=== PATIENT | male | born 1975 | race Caucasian/White ===

== ENCOUNTER 2016-09-04 20:24 | Emergency (ER) | payer OTHER ==
--- NOTE | 2016-09-04 21:37 | ED ORDER SUMMARY ---
..... Patient: MUKUL PAINTER OrderSheet [facility] VisitID: [id number] [place] [address] 41y, M Registration Date/Time: 09/04/2016 ORDER SHEET Weight: 90.7 kg (stated) Allergies: Aspirin GENERAL ORDERS: MEDICATION ORDERS: Bupivacaine-Epinephrine Injection 0.5 % (soln) (NOW) (:09/04/2016 Christian Montenegro) (Ack 21:20 HSoule) (21:24 HSoule) Lidocaine-Epinephrine Injection 1% (place at bedside, with syringes & needles) (:09/04/2016 Christian Montenegro) (Ack 21:20 HSoule) (21:24 HSoule) Penicillin V Potassium PO 500 mg (NOW) (:09/04/2016 Christian Montenegro) (Ack 21:20 HSoule) (21:24 HSoule) IV FLUIDS: ORDER SHEET NOTES: [Electronically signed by Valeria Vang R.N. (21:44 09/04/2016)] [Electronically signed by Alessio Guerra Dr. (07:48 09/05/2016)] [Electronically locked/signed by Valeria Vang R.N. (:44 09/04/2016)]
--- NOTE | 2016-09-04 21:37 | ED NURSING NOTES ---
Clinical Report - Nurses [facility] [address] [place] [address] 09/04/2016 20:26 Patient: MUKUL PAINTER TRIAGE Triage time 20:32. Chief Complaint: LEFT LOWER TOOTHACHE and JAW PAIN. --20:38 Sharri Cazares R.N. 20:32 09/04/16. BP: 133/95. HR: 67. RR: 18. O2 saturation: 96% on room air. Temp: 98.2 F (oral). Pain level now: 11/22. --20:38 Sharri Cazares R.N. Weight: 90.7 kg stated. Height/Length: 68 inches Per Patient. BMI: 30.4. --20:39 Sharri Cazares R.N. Medications Naproxen Oral. --20:36 Sharri Cazares R.N. Allergies Aspirin. --20:36 Sharri Cazares R.N. History Arrived by private vehicle. Primary physician (none). This started yesterday. Onset was gradual. Started while eating and worsened while eating. Symptoms still present (pain started 2 days ago). He has no dental appointment scheduled. ( left lower molar teeth broken at the gum). He has had a toothache (left lower molar). PAST MEDICAL HX: Immunizations: up-to-date. SOCIAL HX: Never smoker. Occasional alcohol use; consumes beer occasionally. History of drug use: marijuana. Recently used drugs just prior to arrival. (daily). --20:38 Sharri Cazares R.N. FALL RISK ASSESSMENT: Fall risk assessment completed. No fall risk identified. --20:38 Sharri Cazares R.N. PROBLEMS: no known problems. ADDITIONAL SURGERIES: no known surgeries. Interventions ID band on patient. --20:38 Sharri Cazares R.N. PHYSICAL ASSESSMENT Ambulatory to room. GENERAL / NEURO / PSYCH: Alert. Oriented X 4. Appears in no acute distress. HEENT: Extensive dental decay (right lower molar area, right lower canine area, left lower molar area). RESPIRATORY: Respirations not labored. SKIN: Skin is warm and dry. --20:39 Sharri Cazares R.N. NURSING PROGRESS NOTES Two patient identifiers checked. Call light placed in reach. Side rails up x 1. Bed placed in lowest position. Brakes of bed on. Patient ready for evaluation- chart flagged. --20:40 Sharri Cazares R.N. 21:24 09/04/2016 Bupivacaine-Epinephrine (Bupivacaine-Epinephrine) Injection Injectable 0.5 % given. Allergies verified and confirmed 5 rights. (Administered by provider as dental block). --21:24 Larisa Torres 21:09/04/2016 Lidocaine-Epinephrine (Lidocaine-Epinephrine) Injection Injectable 2 % given. Allergies verified and confirmed 5 rights. (Administered by provider as dental block). --21:24 Larisa Torres 21:09/04/2016 Penicillin V Potassium PO Tablets 500 mg given. Allergies verified and confirmed 5 rights. --:24 Larisa Torres. DISPOSITION / DISCHARGE Departure time: 21:44. Condition at departure: improved. No learning barriers present. Discharge instructions provided and reviewed with the patient. Reviewed medication(s) side effects, precautions, dosing and course information. Prescription(s) given to the patient. Reviewed referral to a dentist. Patient verbalized understanding. Written instructions provided in East Timorese. No warning instructions, treatment instructions, diet instructions, activity restrictions or note given. No follow up contact number given or stop smoking instructions. The patient was discharged by the physician. He was discharged home. He left the Emergency Department ambulatory and via private vehicle. Police Surgeon driving. FALL RISK ASSESSMENT: Fall risk assessment completed. No fall risk identified. --21:44 Sahra Plata 21:43 09/04/16. BP: 125/66. HR: 72. RR: 18. O2 saturation: 99%. Temp: deferred. Pain level now: 0/10. --21:44 Sahra Plata Locked/Released at 09/04/2016 21:44 by Sahra Plata
--- NOTE | 2016-09-04 21:37 | ED NURSING NOTES ---
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 Chief Complaint: LEFT LOWER TOOTHACHE and JAW PAIN. --20:38 Sharri Cazares R.N. 20:32 09/04/16. BP: 133/95. HR: 67. RR: 18. O2 saturation: 96% on room air. Temp: 98.2 F (oral). Pain level now: 11/22. --20:38 Sharri Cazares R.N. Weight: 90.7 kg stated. Height/Length: 68 inches Per Patient. BMI: 30.4. --20:39 Sharri Cazares R.N. Medications Naproxen Oral. --20:36 Sharri Cazares R.N. Allergies Aspirin. --20:36 Sharri Cazares R.N. History Arrived by private vehicle. Primary physician (none). This started yesterday. Onset was gradual. Started while eating and worsened while eating. Symptoms still present (pain started 2 days ago). He has no dental appointment scheduled. ( left lower molar teeth broken at the gum). He has had a toothache (left lower molar). PAST MEDICAL HX: Immunizations: up-to-date. SOCIAL HX: Never smoker. Occasional alcohol use; consumes beer occasionally. History of drug use: marijuana. Recently used drugs just prior to arrival. (daily). --20:38 Sharri Cazares R.N. FALL RISK ASSESSMENT: Fall risk assessment completed. No fall risk identified. --20:38 Sharri Cazares R.N. PROBLEMS: no known problems. ADDITIONAL SURGERIES: no known surgeries. Interventions ID band on patient. --20:38 Sharri Cazares R.N. PHYSICAL ASSESSMENT Ambulatory to room. GENERAL / NEURO / PSYCH: Alert. Oriented X 4. Appears in no acute distress. HEENT: Extensive dental decay (right lower molar area, right lower canine area, left lower molar area). RESPIRATORY: Respirations not labored. SKIN: Skin is warm and dry. --20:39 Sharri Cazares R.N. NURSING PROGRESS NOTES Two patient identifiers checked. Call light placed in reach. Side rails up x 1. Bed placed in lowest position. Brakes of bed on. Patient ready for evaluation- chart flagged. --20:40 Sharri Cazares R.N. 21:24 09/04/2016 Bupivacaine-Epinephrine (Bupivacaine-Epinephrine) Injection Injectable 0.5 % given. Allergies verified and confirmed 5 rights. (Administered by provider as dental block). --21:24 Larisa Torres 21:09/04/2016 Lidocaine-Epinephrine (Lidocaine-Epinephrine) Injection Injectable 2 % given. Allergies verified and confirmed 5 rights. (Administered by provider as dental block). --21:24 Larisa Torres 21:09/04/2016 Penicillin V Potassium PO Tablets 500 mg given. Allergies verified and confirmed 5 rights. --:24 Larisa Torres. DISPOSITION / DISCHARGE Departure time: 21:44. Condition at departure: improved. No learning barriers present. Discharge instructions provided and reviewed with the patient. Reviewed medication(s) side effects, precautions, dosing and course information. Prescription(s) given to the patient. Reviewed referral to a dentist. Patient verbalized understanding. Written instructions provided in Lebanese. No warning instructions, treatment instructions, diet instructions, activity restrictions or note given. No follow up contact number given or stop smoking instructions. The patient was discharged by the physician. He was discharged home. He left the Emergency Department ambulatory and via private vehicle. Investment Sales Assistant driving. FALL RISK ASSESSMENT: Fall risk assessment completed. No fall risk identified. --21:44 Sahra Plata 21:43 09/04/16. BP: 125/66. HR: 72. RR: 18. O2 saturation: 99%. Temp: deferred. Pain level now: 0/10. --21:44 Sahra Plata Locked/Released at 09/04/2016 21:44 by Sahra Plata
--- NOTE | 2016-09-04 21:37 | ED CLINICAL REPORT ---
Clinical Report - Physicians/Mid Levels [facility] [address] [place] [place] [address] 09/04/2016 20:26 Patient: MUKUL PAINTER Time Seen: 2109; initial patient contact. Arrived- By private vehicle. Historian- patient. HISTORY OF PRESENT ILLNESS Chief Complaint: DENTAL PAIN. This started today But off-and-on for the past several months and is still present and worsening. It was abrupt in onset and has been constant but is not gone now. Pain described as severe. No toothache. (left lower teeth. No recent dental procedures. Reports his tetanus is up-to-date.). Similar symptoms previously: Recent medical care: Not recently seen/assessed. REVIEW OF SYSTEMS No fever, nausea, skin rash or vomiting. All systems otherwise negative, except as recorded above. PAST HISTORY See nurses notes. Problems: no known problems. Additional Surgeries: no known surgeries. Medications: Naproxen Oral. Allergies: Aspirin. SOCIAL HISTORY Never smoker. Alcohol use. History of occasional drug use: marijuana. No recent travel. Is a local resident. ADDITIONAL NOTES The nursing notes have been reviewed. PHYSICAL EXAM Vital Signs: 09/04/2016 20:32 BP: 133/95. HR: 67. RR: 18. O2 saturation: 96%. Temp: 98.2 F. Pain level now: 7/10. Oxygen saturation normal. Appearance: Alert. No acute distress. (ontoxic). Head: Normal external inspection. Eyes: Pupils equal, round and reactive to light. Conjunctivae and eyelids normal. ENT: Dental decay. Ears normal. Nose normal. Pharynx normal. Lips normal. Gums normal. No trismus present. Uvula midline. (no brawny edema). (diffuse dental caries. No abscess. No active drainage.). Neck: Trachea midline. No adenopathy. CVS: Normal heart rate and rhythm. Heart sounds normal. Pulses normal. Respiratory: No respiratory distress. Breath sounds normal. Chest nontender. Abdomen: Soft and nontender. No organomegaly. Skin: Normal skin color. No rash. Normal skin turgor. Extremities: Extremities exhibit normal ROM. Extremities nontender. PROGRESS AND PROCEDURES Dental Nerve Block: Inferior Alveolar Block. Procedure performed on the left side. Landmarks were identified. Topical anesthetic applied. Total volume of 5 mL 1% Lidocaine and 0.25% Marcaine infiltrated using a 27-gauge needle. Patient cooperative during procedure. No complications encountered. Excellent anesthesia achieved. ( Pain resolved). Course of Care: the patient is a pleasant 41-year-old male with no pertinent past medical history presenting for evaluation of toothache. No evidence of airway compromise at this time. Offered patient dental block while here in the emergency department. After discussion of the risk and benefits of the procedure, patient was agreeable to the dental block. A 11 solution oflidocaine with bupivacaine as been injected into the inferior alveolar nerve space. Please see procedure note for further details. Patient tolerated procedure well. Paincame from a 7 out of 10 in severity down to a 0 out of 10 in severity. No signs of more serious infection at this time. Patient be treated conservatively with antibiotics and follow up with dental specialist. Resources provided here in the emergency department. Had a discussion with the patient in regards his workup here in the emergency department In addition to diagnosis, home care, follow-up, and return precautions. All questions have been answered. The patient expressed understanding of these instructions and was agreeable to them. Disposition: Discharged. Condition: good. CLINICAL IMPRESSION 09/04/2016 20:32 BP: 133/95. HR: 67. RR: 18. O2 saturation: 96%. Temp: 98.2 F. Pain level now: 7/10. Blood pressure normal. Oxygen saturation normal. Dental caries (extensive decay) Essential hypertension. acute left sided facial pain. INSTRUCTIONS Warnings: GENERAL WARNINGS: Return or contact your physician immediately if your condition worsens or changes unexpectedly, if not improving as expected, or if other problems arise. Specifically return if pain, vomiting, bleeding, breathing difficulty or fever. Your Current Medications: STOP TAKING THE FOLLOWING MEDICATIONS: Naproxen Oral. Prescription Medications: Penicillin V 500 mg: take 1 tab orally every 12 hours for 10 days. Dispense twenty (20). No refills. Motrin 600 mg tablets: take 1 tablet orally every 6 hours as needed for pain, stiffness or swelling. Dispense thirty (30). No refill. Substitution is permissible. Follow-up: Return to the emergency department as needed. Follow up with your doctor. Reason for referral: recheck today's concerns. Summary of care provided to patient via paper. Screening today revealed the patient's blood pressure to be in the normal range. The patient should follow up with a primary care provider for blood pressure management. Understanding of the discharge instructions verbalized by patient. (Electronically signed by Alessio Guerra Dr. 09/05/2016 7:48)
--- NOTE | 2016-09-04 21:37 | ED ORDER SUMMARY ---
..... Patient: MUKUL PAINTER OrderSheet [facility] VisitID: [id number] [place] [address] 41y, M Registration Date/Time: 09/04/2016 ORDER SHEET Weight: 90.7 kg (stated) Allergies: Aspirin GENERAL ORDERS: MEDICATION ORDERS: Bupivacaine-Epinephrine Injection 0.5 % (soln) (NOW) (:09/04/2016 Christian Montenegro) (Ack 21:20 HSoule) (21:24 HSoule) Lidocaine-Epinephrine Injection 1% (place at bedside, with syringes & needles) (:09/04/2016 Christian Montenegro) (Ack 21:20 HSoule) (21:24 HSoule) Penicillin V Potassium PO 500 mg (NOW) (:09/04/2016 Christian Montenegro) (Ack 21:20 HSoule) (21:24 HSoule) IV FLUIDS: ORDER SHEET NOTES: [Electronically signed by Valeria Vang R.N. (21:44 09/04/2016)] [Electronically signed by Alessio Guerra Dr. (07:48 09/05/2016)] [Electronically locked/signed by Valeria Vang R.N. (:44 09/04/2016)]
--- NOTE | 2016-09-05 07:48 | ED DISCHARGE INSTRUCTIONS ---
Patient: MUKUL PAINTER General Instructions [facility] VisitID: [id number] [place] [address] 41y, M Registration Date/Time: 09/04/2016 09/04/2016 20:32 BP: 133/95. HR: 67. RR: 18. O2 saturation: 96%. Temp: 98.2 F. Pain level now: 11/22. Blood pressure normal. Oxygen saturation normal. Dental caries (extensive decay) Essential hypertension. acute left sided facial pain. INSTRUCTIONS Warnings: GENERAL WARNINGS: Return or contact your physician immediately if your condition worsens or changes unexpectedly, if not improving as expected, or if other problems arise. Specifically return if pain, vomiting, bleeding, breathing difficulty or fever. Your Current Medications: STOP TAKING THE FOLLOWING MEDICATIONS: Naproxen Oral. Prescription Medications: Penicillin V 500 mg: take 1 tab orally every 12 hours for 10 days. Dispense twenty (20). No refills. Motrin 600 mg tablets: take 1 tablet orally every 6 hours as needed for pain, stiffness or swelling. Dispense thirty (30). No refill. Substitution is permissible. Follow-up: Return to the emergency department as needed. Follow up with your doctor. Reason for referral: recheck today's concerns. Summary of care provided to patient via paper. Screening today revealed the patient's blood pressure to be in the normal range. The patient should follow up with a primary care provider for blood pressure management. Understanding of the discharge instructions verbalized by patient. ADDITIONAL INFORMATION Dental Cavity A dental cavity is a pit or crater in the enamel surface of the tooth. This exposes the sensitive inner layer of the tooth and causes pain. If untreated, the cavity will get bigger and may cause an infection or abscess in the root of the tooth. An infection in the tooth is a much more serious problem and may require a root canal or removal of the entire tooth. The tooth pain may be made worse by drinking hot or cold fluids. It may spread from the tooth to the ear or jaw on the same side. Home Care: Avoid hot and cold foods, and liquids since your tooth may be sensitive to temperature changes. If your tooth is chipped or cracked, or if there is a large open cavity, apply OIL OF CLOVES (available [id number] in drug stores) directly to the tooth to reduce pain. Some pharmacies carry an [id number] "toothache kit." This contains oil of cloves and a paste, which can be applied over the exposed tooth to decrease sensitivity. An ice pack on your jaw over the sore area may help to reduce pain. You may use acetaminophen (Tylenol) or ibuprofen (Motrin, Advil) to control pain, unless another pain medicine was prescribed. [ NOTE: If you have liver disease or ever had a stomach ulcer, talk with your doctor before using these medicines.] If you have signs of an infection, an antibiotic will be given. Take it as directed. Follow-Up with your dentist as directed. Although your pain may go away with the treatment given, only a dentist can fully evaluate and treat this problem to prevent further tooth damage. Get Prompt Medical Attention if any of the following occur: Redness or swelling of the face Pain worsens or spreads to the neck Fever over 100.5 F (38C) Unusual drowsiness; headache or stiff neck; weakness or fainting Pus drains from the tooth or gum Difficulty swallowing or breathing High Blood Pressure -- To Be Confirmed [No Tx] Your blood pressure was higher today than normal. Sometimes anxiety or pain can cause a temporary rise in blood pressure that later returns to normal. If your blood pressure is high on one measurement, this does not mean that you have hypertension (a chronic illness). However, you must have your blood pressure measured again within the next few days to find out if its still high. A normal blood pressure is 120/80 or less. The first (top) number is the "systolic" pressure. The second (bottom) number is the "diastolic" pressure. Hypertension exists when either the top number is 140 or higher, OR the bottom number is 90 or higher on repeated measurements. Blood pressure in the range of 120-140 (systolic) or 80-89 (diastolic) is considered "pre-hypertension". This means your are at risk for getting hypertension. You should have regular blood pressure checks to be sure your blood pressure is not rising. Home Care: Measure your blood pressure on 3 different days and write down the results. This can be done at your doctor's office or this facility. Some pharmacies and grocery stores offer automated blood pressure machines for your use. Follow Up: If your blood pressure is "high" (over 120/80) on 2 out of 3 days, you will need to follow up with your doctor for further evaluation and treatment. DO NOT PUT THIS OFF! Untreated high blood pressure increases the risk for heart attack, also known as acute myocardial infarction, or AMI, and stroke. It is a treatable condition. Get Prompt Medical Attention if any of the following occur: Chest pain or shortness of breath Severe headache Throbbing or rushing sound in the ears Nosebleed Sudden severe abdominal pain Extreme drowsiness, confusion or fainting Dizziness or vertigo (dizziness with spinning sensation) Weakness of an arm or leg or one side of the face Difficulty with speech or vision Penicillin V Potassium Oral tablet What is this medicine? PENICILLIN V (pen i SILL in V) is a penicillin antibiotic. It is used to treat certain kinds of bacterial infections. It will not work for colds, flu, or other viral infections. How should I use this medicine? Take this medicine by mouth with a full glass of water. Follow the directions on the prescription label. Take your medicine at regular intervals. Do not take your medicine more often than directed. Take all of your medicine as directed even if you think your are better. Do not skip doses or stop your medicine early. Talk to your plasma processing centrifuge operator regarding the use of this medicine in children. While this drug may be prescribed for selected conditions, precautions do apply. What side effects may I notice from receiving this medicine? Side effects that you should report to your doctor or health complex care nurse practitioner as soon as possible: allergic reactions like skin rash or hives, swelling of the face, lips, or tongue breathing problems fever new symptoms of infection redness, blistering, peeling or loosening of the skin, including inside the mouth unusually weak or tired Side effects that usually do not require medical attention (report to your doctor or health complex care nurse practitioner if they continue or are bothersome): diarrhea headache nausea, vomiting sore mouth or tongue stomach upset What may interact with this medicine? control pills methotrexate other antibiotics probenecid some vaccines What if I miss a dose? If you miss a dose, take it as soon as you can. If it is almost time for your next dose, take only that dose. Do not take double or extra doses. Where should I keep my medicine? Keep out of the reach of children. Store at room temperature between 15 and 30 degrees C (59 and 86 degrees F). Keep container tightly closed. Throw away any unused medicine after the expiration date. What should I tell my health care provider before I take this medicine? They need to know if you have any of these conditions: asthma bowel disease, like colitis eczema kidney disease an unusual or allergic reaction to penicillin, cephalosporins, other antibiotics or medicines, foods, tartrazine or other dyes, or preservatives or trying to get breast-feeding What should I watch for while using this medicine? Tell your doctor or health complex care nurse practitioner if your symptoms do not improve. Do not treat diarrhea with over the counter products. Contact your doctor if you have diarrhea that lasts more than 2 days or if it is severe and watery. If you have diabetes, you may get a false-positive result for sugar in your urine. Check with your doctor or health complex care nurse practitioner. control pills may not work properly while you are taking this medicine. Talk to your doctor about using an extra method of control. Ibuprofen Oral tablet What is this medicine? IBUPROFEN (eye BYOO proe fen) is a non-steroidal anti-inflammatory drug (NSAID). It is used for dental pain, fever, headaches or migraines, osteoarthritis, rheumatoid arthritis, or painful monthly periods. It can also relieve minor aches and pains caused by a cold, flu, or sore throat. How should I use this medicine? Take this medicine by mouth with a glass of water. Follow the directions on the prescription label. Take this medicine with food if your stomach gets upset. Try to not lie down for at least 10 minutes after you take the medicine. Take your medicine at regular intervals. Do not take your medicine more often than directed. A special MedGuide will be given to you by the pharmacist with each prescription and refill. Be sure to read this information carefully each time. Talk to your plasma processing centrifuge operator regarding the use of this medicine in children. Special care may be needed. What side effects may I notice from receiving this medicine? Side effects that you should report to your doctor or health complex care nurse practitioner as soon as possible: allergic reactions like skin rash, itching or hives, swelling of the face, lips, or tongue black or bloody stools, blood in the urine or in vomit breathing problems changes in vision chest pain general ill feeling or flu-like symptoms nausea or vomiting redness, blistering, peeling or loosening of the skin, including inside the mouth slurred speech or weakness on one side of the body stomach pain unexplained weight gain or swelling unusually weak or tired yellowing of eyes or skin Side effects that usually do not require medical attention (report to your doctor or health complex care nurse practitioner if they continue or are bothersome): constipation or diarrhea dizziness gas or heartburn stomach upset What may interact with this medicine? Do not take this medicine with any of the following medications: cidofovir ketorolac methotrexate pemetrexed This medicine may also interact with the following medications: alcohol aspirin diuretics lithium other drugs for inflammation like prednisone warfarin What if I miss a dose? If you miss a dose, take it as soon as you can. If it is almost time for your next dose, take only that dose. Do not take double or extra doses. Where should I keep my medicine? Keep out of the reach of children. Store at room temperature between 15 and 30 degrees C (59 and 86 degrees F). Keep container tightly closed. Throw away any unused medicine after the expiration date. What should I tell my health care provider before I take this medicine? They need to know if you have any of these conditions: asthma cigarette smoker drink more than 3 alcohol containing drinks a day heart disease or circulation problems such as heart failure or leg edema (fluid retention) high blood pressure kidney disease liver disease stomach bleeding or ulcers an unusual or allergic reaction to ibuprofen, aspirin, other NSAIDS, other medicines, foods, dyes, or preservatives or trying to get breast-feeding What should I watch for while using this medicine? Tell your doctor or healthcare professional if your symptoms do not start to get better or if they get worse. This medicine does not prevent heart attack or stroke. In fact, this medicine may increase the chance of a heart attack or stroke. The chance may increase with longer use of this medicine and in people who have heart disease. If you take aspirin to prevent heart attack or stroke, talk with your doctor or health complex care nurse practitioner. Do not take other medicines that contain aspirin, ibuprofen, or naproxen with this medicine. Side effects such as stomach upset, nausea, or ulcers may be more likely to occur. Many medicines available without a prescription should not be taken with this medicine. This medicine can cause ulcers and bleeding in the stomach and intestines at any time during treatment. Ulcers and bleeding can happen without warning symptoms and can cause . To reduce your risk, do not smoke cigarettes or drink alcohol while you are taking this medicine. You may get drowsy or dizzy. Do not drive, use machinery, or do anything that needs mental alertness until you know how this medicine affects you. Do not stand or sit up quickly, especially if you are an older patient. This reduces the risk of dizzy or fainting spells. This medicine can cause you to bleed more easily. Try to avoid damage to your teeth and gums when you brush or floss your teeth. You have been given the following additional information: Dental Cavity Hypertension, To Be Confirmed Penicillin V Potassium Oral tablet Ibuprofen Oral tablet (Electronically signed by Alessio Guerra Dr. 09/05/2016 7:48)
--- NOTE | 2016-09-05 07:48 | ED MAR SUMMARY ---
..... Medication Administration Record [facility] [address] [place] [address] Patient: MUKUL PAINTER Visit ID: [id number] 41y, M Weight: 90.7 kg Height/Length: 68 in BMI: 30.4 ALLERGIES: Aspirin Given 21:09/04/2016 Larisa Torres, Medication Administered: BUPIVACAINE-EPINEPHRINE [INJECTION] (BUPIVACAINE-EPINEPHRINE), Dose: 0.5 % Injectable Injection. Medication Ordered: Bupivacaine-Epinephrine Injection 0.5 % (soln) (NOW). Given :09/04/2016 Larisa Torres, Medication Administered: LIDOCAINE-EPINEPHRINE [INJECTION] (LIDOCAINE-EPINEPHRINE), Dose: 2 % Injectable Injection. Medication Ordered: Lidocaine-Epinephrine Injection 1% (place at bedside, with syringes & needles). Given :09/04/2016 Larisa Torres, Medication Administered: PENICILLIN V POTASSIUM [PO], Dose: 500 mg Tablets PO. Medication Ordered: Penicillin V Potassium PO 500 mg (NOW).
--- NOTE | 2016-09-05 07:48 | ED DISCHARGE INSTRUCTIONS ---
Patient: MUKUL PAINTER General Instructions [facility] VisitID: [id number] [place] [address] 41y, M Registration Date/Time: 09/04/2016 09/04/2016 20:32 BP: 133/95. HR: 67. RR: 18. O2 saturation: 96%. Temp: 98.2 F. Pain level now: 11/22. Blood pressure normal. Oxygen saturation normal. Dental caries (extensive decay) Essential hypertension. acute left sided facial pain. INSTRUCTIONS Warnings: GENERAL WARNINGS: Return or contact your physician immediately if your condition worsens or changes unexpectedly, if not improving as expected, or if other problems arise. Specifically return if pain, vomiting, bleeding, breathing difficulty or fever. Your Current Medications: STOP TAKING THE FOLLOWING MEDICATIONS: Naproxen Oral. Prescription Medications: Penicillin V 500 mg: take 1 tab orally every 12 hours for 10 days. Dispense twenty (20). No refills. Motrin 600 mg tablets: take 1 tablet orally every 6 hours as needed for pain, stiffness or swelling. Dispense thirty (30). No refill. Substitution is permissible. Follow-up: Return to the emergency department as needed. Follow up with your doctor. Reason for referral: recheck today's concerns. Summary of care provided to patient via paper. Screening today revealed the patient's blood pressure to be in the normal range. The patient should follow up with a primary care provider for blood pressure management. Understanding of the discharge instructions verbalized by patient. ADDITIONAL INFORMATION Dental Cavity A dental cavity is a pit or crater in the enamel surface of the tooth. This exposes the sensitive inner layer of the tooth and causes pain. If untreated, the cavity will get bigger and may cause an infection or abscess in the root of the tooth. An infection in the tooth is a much more serious problem and may require a root canal or removal of the entire tooth. The tooth pain may be made worse by drinking hot or cold fluids. It may spread from the tooth to the ear or jaw on the same side. Home Care: Avoid hot and cold foods, and liquids since your tooth may be sensitive to temperature changes. If your tooth is chipped or cracked, or if there is a large open cavity, apply OIL OF CLOVES (available [id number] in drug stores) directly to the tooth to reduce pain. Some pharmacies carry an [id number] "toothache kit." This contains oil of cloves and a paste, which can be applied over the exposed tooth to decrease sensitivity. An ice pack on your jaw over the sore area may help to reduce pain. You may use acetaminophen (Tylenol) or ibuprofen (Motrin, Advil) to control pain, unless another pain medicine was prescribed. [ NOTE: If you have liver disease or ever had a stomach ulcer, talk with your doctor before using these medicines.] If you have signs of an infection, an antibiotic will be given. Take it as directed. Follow-Up with your dentist as directed. Although your pain may go away with the treatment given, only a dentist can fully evaluate and treat this problem to prevent further tooth damage. Get Prompt Medical Attention if any of the following occur: Redness or swelling of the face Pain worsens or spreads to the neck Fever over 100.5 F (38C) Unusual drowsiness; headache or stiff neck; weakness or fainting Pus drains from the tooth or gum Difficulty swallowing or breathing High Blood Pressure -- To Be Confirmed [No Tx] Your blood pressure was higher today than normal. Sometimes anxiety or pain can cause a temporary rise in blood pressure that later returns to normal. If your blood pressure is high on one measurement, this does not mean that you have hypertension (a chronic illness). However, you must have your blood pressure measured again within the next few days to find out if its still high. A normal blood pressure is 120/80 or less. The first (top) number is the "systolic" pressure. The second (bottom) number is the "diastolic" pressure. Hypertension exists when either the top number is 140 or higher, OR the bottom number is 90 or higher on repeated measurements. Blood pressure in the range of 120-140 (systolic) or 80-89 (diastolic) is considered "pre-hypertension". This means your are at risk for getting hypertension. You should have regular blood pressure checks to be sure your blood pressure is not rising. Home Care: Measure your blood pressure on 3 different days and write down the results. This can be done at your doctor's office or this facility. Some pharmacies and grocery stores offer automated blood pressure machines for your use. Follow Up: If your blood pressure is "high" (over 120/80) on 2 out of 3 days, you will need to follow up with your doctor for further evaluation and treatment. DO NOT PUT THIS OFF! Untreated high blood pressure increases the risk for heart attack, also known as acute myocardial infarction, or AMI, and stroke. It is a treatable condition. Get Prompt Medical Attention if any of the following occur: Chest pain or shortness of breath Severe headache Throbbing or rushing sound in the ears Nosebleed Sudden severe abdominal pain Extreme drowsiness, confusion or fainting Dizziness or vertigo (dizziness with spinning sensation) Weakness of an arm or leg or one side of the face Difficulty with speech or vision Penicillin V Potassium Oral tablet What is this medicine? PENICILLIN V (pen i SILL in V) is a penicillin antibiotic. It is used to treat certain kinds of bacterial infections. It will not work for colds, flu, or other viral infections. How should I use this medicine? Take this medicine by mouth with a full glass of water. Follow the directions on the prescription label. Take your medicine at regular intervals. Do not take your medicine more often than directed. Take all of your medicine as directed even if you think your are better. Do not skip doses or stop your medicine early. Talk to your material requirements planning manager regarding the use of this medicine in children. While this drug may be prescribed for selected conditions, precautions do apply. What side effects may I notice from receiving this medicine? Side effects that you should report to your doctor or health acute care certified nursing assistant as soon as possible: allergic reactions like skin rash or hives, swelling of the face, lips, or tongue breathing problems fever new symptoms of infection redness, blistering, peeling or loosening of the skin, including inside the mouth unusually weak or tired Side effects that usually do not require medical attention (report to your doctor or health acute care certified nursing assistant if they continue or are bothersome): diarrhea headache nausea, vomiting sore mouth or tongue stomach upset What may interact with this medicine? control pills methotrexate other antibiotics probenecid some vaccines What if I miss a dose? If you miss a dose, take it as soon as you can. If it is almost time for your next dose, take only that dose. Do not take double or extra doses. Where should I keep my medicine? Keep out of the reach of children. Store at room temperature between 15 and 30 degrees C (59 and 86 degrees F). Keep container tightly closed. Throw away any unused medicine after the expiration date. What should I tell my health care provider before I take this medicine? They need to know if you have any of these conditions: asthma bowel disease, like colitis eczema kidney disease an unusual or allergic reaction to penicillin, cephalosporins, other antibiotics or medicines, foods, tartrazine or other dyes, or preservatives or trying to get breast-feeding What should I watch for while using this medicine? Tell your doctor or health acute care certified nursing assistant if your symptoms do not improve. Do not treat diarrhea with over the counter products. Contact your doctor if you have diarrhea that lasts more than 2 days or if it is severe and watery. If you have diabetes, you may get a false-positive result for sugar in your urine. Check with your doctor or health acute care certified nursing assistant. control pills may not work properly while you are taking this medicine. Talk to your doctor about using an extra method of control. Ibuprofen Oral tablet What is this medicine? IBUPROFEN (eye BYOO proe fen) is a non-steroidal anti-inflammatory drug (NSAID). It is used for dental pain, fever, headaches or migraines, osteoarthritis, rheumatoid arthritis, or painful monthly periods. It can also relieve minor aches and pains caused by a cold, flu, or sore throat. How should I use this medicine? Take this medicine by mouth with a glass of water. Follow the directions on the prescription label. Take this medicine with food if your stomach gets upset. Try to not lie down for at least 10 minutes after you take the medicine. Take your medicine at regular intervals. Do not take your medicine more often than directed. A special MedGuide will be given to you by the pharmacist with each prescription and refill. Be sure to read this information carefully each time. Talk to your material requirements planning manager regarding the use of this medicine in children. Special care may be needed. What side effects may I notice from receiving this medicine? Side effects that you should report to your doctor or health acute care certified nursing assistant as soon as possible: allergic reactions like skin rash, itching or hives, swelling of the face, lips, or tongue black or bloody stools, blood in the urine or in vomit breathing problems changes in vision chest pain general ill feeling or flu-like symptoms nausea or vomiting redness, blistering, peeling or loosening of the skin, including inside the mouth slurred speech or weakness on one side of the body stomach pain unexplained weight gain or swelling unusually weak or tired yellowing of eyes or skin Side effects that usually do not require medical attention (report to your doctor or health acute care certified nursing assistant if they continue or are bothersome): constipation or diarrhea dizziness gas or heartburn stomach upset What may interact with this medicine? Do not take this medicine with any of the following medications: cidofovir ketorolac methotrexate pemetrexed This medicine may also interact with the following medications: alcohol aspirin diuretics lithium other drugs for inflammation like prednisone warfarin What if I miss a dose? If you miss a dose, take it as soon as you can. If it is almost time for your next dose, take only that dose. Do not take double or extra doses. Where should I keep my medicine? Keep out of the reach of children. Store at room temperature between 15 and 30 degrees C (59 and 86 degrees F). Keep container tightly closed. Throw away any unused medicine after the expiration date. What should I tell my health care provider before I take this medicine? They need to know if you have any of these conditions: asthma cigarette smoker drink more than 3 alcohol containing drinks a day heart disease or circulation problems such as heart failure or leg edema (fluid retention) high blood pressure kidney disease liver disease stomach bleeding or ulcers an unusual or allergic reaction to ibuprofen, aspirin, other NSAIDS, other medicines, foods, dyes, or preservatives or trying to get breast-feeding What should I watch for while using this medicine? Tell your doctor or healthcare professional if your symptoms do not start to get better or if they get worse. This medicine does not prevent heart attack or stroke. In fact, this medicine may increase the chance of a heart attack or stroke. The chance may increase with longer use of this medicine and in people who have heart disease. If you take aspirin to prevent heart attack or stroke, talk with your doctor or health acute care certified nursing assistant. Do not take other medicines that contain aspirin, ibuprofen, or naproxen with this medicine. Side effects such as stomach upset, nausea, or ulcers may be more likely to occur. Many medicines available without a prescription should not be taken with this medicine. This medicine can cause ulcers and bleeding in the stomach and intestines at any time during treatment. Ulcers and bleeding can happen without warning symptoms and can cause . To reduce your risk, do not smoke cigarettes or drink alcohol while you are taking this medicine. You may get drowsy or dizzy. Do not drive, use machinery, or do anything that needs mental alertness until you know how this medicine affects you. Do not stand or sit up quickly, especially if you are an older patient. This reduces the risk of dizzy or fainting spells. This medicine can cause you to bleed more easily. Try to avoid damage to your teeth and gums when you brush or floss your teeth. You have been given the following additional information: Dental Cavity Hypertension, To Be Confirmed Penicillin V Potassium Oral tablet Ibuprofen Oral tablet (Electronically signed by Alessio Guerra Dr. 09/05/2016 7:48)
--- NOTE | 2016-09-05 07:48 | ED MED RECONCILIATION SUMMARY ---
Patient: MUKUL PAINTER Medication Reconciliation Report [facility] VisitID: [id number] [address] [place] [address] 41y, M Registration Date/Time: 09/04/2016 Weight: 90.7 kg Height/Length: 68 in. BMI: 30.4 ALLERGIES: Aspirin The patient's Home Medications are listed below: STOP TAKING THE FOLLOWING MEDICATIONS: Naproxen Oral The source(s) of the original Home Medication information: Not obtained. The following Medications were given to the patient in the Emergency Department: Bupivacaine-Epinephrine [Injection] Injection 0.5 %, administered: 09/04/2016 9:24:00 PM Lidocaine-Epinephrine [Injection] Injection 2 %, administered: 09/04/2016 9:24:00 PM Penicillin V Potassium [PO] PO 500 mg, administered: 09/04/2016 9:24:00 PM The following Medications were prescribed to the patient: Penicillin V 500 mg: take 1 tab orally every 12 hours for 10 days. Dispense twenty (20). No refills. -- Alessio Guerra Dr. Motrin 600 mg tablets: take 1 tablet orally every 6 hours as needed for pain, stiffness or swelling. Dispense thirty (30). No refill. Substitution is permissible. -- Alessio Guerra Dr.
--- NOTE | 2016-09-05 07:48 | ED MAR SUMMARY ---
..... Medication Administration Record Formerly [facility] [address] [place] [address] Patient: MUKUL PAINTER Visit ID: [id number] 41y, M Weight: 90.7 kg Height/Length: 68 in BMI: 30.4 ALLERGIES: Aspirin Given 21:09/04/2016 Larisa Torres, Medication Administered: BUPIVACAINE-EPINEPHRINE [INJECTION] (BUPIVACAINE-EPINEPHRINE), Dose: 0.5 % Injectable Injection. Medication Ordered: Bupivacaine-Epinephrine Injection 0.5 % (soln) (NOW). Given :09/04/2016 Larisa Torres, Medication Administered: LIDOCAINE-EPINEPHRINE [INJECTION] (LIDOCAINE-EPINEPHRINE), Dose: 2 % Injectable Injection. Medication Ordered: Lidocaine-Epinephrine Injection 1% (place at bedside, with syringes & needles). Given :09/04/2016 Larisa Torres, Medication Administered: PENICILLIN V POTASSIUM [PO], Dose: 500 mg Tablets PO. Medication Ordered: Penicillin V Potassium PO 500 mg (NOW).
--- NOTE | 2016-09-05 07:48 | ED MED RECONCILIATION SUMMARY ---
Patient: MUKUL PAINTER Medication Reconciliation Report [facility] VisitID: [id number] [address] [place] [address] 41y, M Registration Date/Time: 09/04/2016 Weight: 90.7 kg Height/Length: 68 in. BMI: 30.4 ALLERGIES: Aspirin The patient's Home Medications are listed below: STOP TAKING THE FOLLOWING MEDICATIONS: Naproxen Oral The source(s) of the original Home Medication information: Not obtained. The following Medications were given to the patient in the Emergency Department: Bupivacaine-Epinephrine [Injection] Injection 0.5 %, administered: 09/04/2016 9:24:00 PM Lidocaine-Epinephrine [Injection] Injection 2 %, administered: 09/04/2016 9:24:00 PM Penicillin V Potassium [PO] PO 500 mg, administered: 09/04/2016 9:24:00 PM The following Medications were prescribed to the patient: Penicillin V 500 mg: take 1 tab orally every 12 hours for 10 days. Dispense twenty (20). No refills. -- Alessio Guerra Dr. Motrin 600 mg tablets: take 1 tablet orally every 6 hours as needed for pain, stiffness or swelling. Dispense thirty (30). No refill. Substitution is permissible. -- Alessio Guerra Dr.
== END 2016-09-04 21:25 | disposition home or self-care (01) ==
LOC: ED SRH 20:24
DX: K02.9 Dental caries, unspecified (principal); G50.1 Atypical facial pain; I10 Essential (primary) hypertension